=== PATIENT | female | born 1960 | race Caucasian/White ===

== ENCOUNTER 2019-06-30 15:42 | Emergency (ER) | payer OTHER ==
[~2019-06-30] VITALS: Ht 170.1 cm; Wt 91.6 kg
[~2019-06-30 15:42] MED LIST: BACTRIM DS 8001 TA1 PO; CIPRO250 MG PO; CIPRO500 MG PO; DOXYCYCLINE MO100 MG PO; NORFLEX100 MG PO; TORADOL10 MG PO; ULTRAM50 MG PO; VICODIN ES 7501 TAB PO
[2019-06-30 15:46] VITALS: BP 134/48
[2019-06-30] MEDS ORDERED: Motrin,Rufen800 MG PO (17:39)
== END 2019-06-30 17:46 | disposition home or self-care (01) ==
LOC: ED 15:42
DX: S40.022A Contusion of left upper arm, initial encounter (principal); M25.512 Pain in left shoulder; M79.602 Pain in left arm; M25.522 Pain in left elbow; V43.53XA Car driver injured in collision with pick-up truck in traffic accident, initial encounter; Y93.89 Activity, other specified; Y92.481 Parking lot as the place of occurrence of the external cause; Y99.8 Other external cause status

== ENCOUNTER 2022-04-10 01:30 | Emergency (ER) | payer OTHER ==
[~2022-04-10 01:30] MED LIST changes: +Motrin,Rufen800 MG PO
[2022-04-10 01:31] VITALS: BP 144/62
[2022-04-10] MEDS ORDERED: INSULIN GL100 UNIT/2 SQ (01:35)
[2022-04-10] MEDS ORDERED: Synthroid,Lev100 MCG PO (01:36)
[2022-04-10] MEDS ORDERED: HUMALOG100 UNIT/1 SQ (01:36)
[2022-04-10] MEDS ORDERED: ZESTORETIC 10-1 EACH PO (01:36)
[2022-04-10] MEDS ORDERED: PRAVASTATIN SOD40 MG PO (01:36)
== END 2022-04-10 02:32 | disposition home or self-care (01) ==
LOC: ED 01:30
DX: E11.649 Type 2 diabetes mellitus with hypoglycemia without coma (principal)

== ENCOUNTER 2023-01-28 22:33 | Emergency (ER) | payer OTHER ==
[~2023-01-28] VITALS: Ht 160 cm; Wt 90.7 kg
[~2023-01-28 22:33] MED LIST changes: +HUMALOG100 UNIT/1 SQ; +INSULIN GL100 UNIT/2 SQ; +PRAVASTATIN SOD40 MG PO; +Synthroid,Lev100 MCG PO; +ZESTORETIC 10-1 EACH PO
[2023-01-28 22:40] VITALS: BP 139/43
== END 2023-01-29 00:17 | disposition home or self-care (01) ==
LOC: ED 22:33
DX: E11.649 Type 2 diabetes mellitus with hypoglycemia without coma (principal); Z79.899 Other long term (current) drug therapy; Z98.51 Tubal ligation status

== ENCOUNTER → 2024-03-04 | Outpatient (CLI) | payer OTHER ==
[2024-03-04 10:49] LABS: BASO % 0.2 % (0.0-1.0); EOS # 0.1 10*3/uL (0.0-0.4); EOS % 1.5 % (1.0-4.0); HEMATOCRIT 40.8 % (37.0-47.0); LYMPH # 3.6 10*3/uL (1.3-4.4); LYMPH % 41.5 % (27.0-41.0); MEAN CELL VOLUME 85.7 fl (81.0-99.0); MEAN CORPUSCULAR HGB 26.3 pg (27.0-31.0); MEAN CORPUSCULAR HGB CONC 30.6 g/dl (33.0-37.0); MEAN PLATELET VOLUME 9.3 fl (9.6-12.3); MONO # 0.5 10*3/uL (0.1-1.0); MONO % 5.3 % (3.0-9.0); NEUT # 4.4 10*3/uL (2.3-7.9); NEUT % 51.3 % (47.0-73.0); PLATELET COUNT AUTOMATED 357 10*3/uL (130-400); RED BLOOD COUNT 4.76 10*6/uL (4.10-5.10); RED CELL DISTRI WIDTH 13.9 % (0-14.5); WHITE BLOOD COUNT 8.7 10*3/uL (4.8-10.8)
[2024-03-04 11:21] LABS: ALKALINE PHOSPHATASE 124 U/L (46-116); BUN 18 mg/dl (9-23); CHLORIDE 105 mmol/L (98-107); CHOLESTEROL 177 mg/dL (<200); LDL CHOLESTEROL 95 mg/dL (9-159); SGPT/ALT 17 U/L (5-49); TOTAL PROTEIN 6.8 gm/dL (6.0-8.0); TRIGLYCERIDES 60 mg/dl (<150)
== END ==
LOC: LAB 10:18
PROVIDERS: ATTEND Nurse Practitioner
DX: I10 Essential (primary) hypertension (principal); E11.9 Type 2 diabetes mellitus without complications; E03.9 Hypothyroidism, unspecified